=== PATIENT | male | born 1990 | race Caucasian/White ===

== ENCOUNTER 2025-01-19 12:10 | Emergency (ER) | payer SELFPAY ==
[~2025-01-19] VITALS: Ht 182.9 cm; Wt 110.0 kg
[2025-01-19 12:16] VITALS: O2SAT 100
[2025-01-19 14:13] VITALS: BP 122/70; PULSE 95; RESP 15; TEMP 36.7; O2SAT 100
== END 2025-01-19 14:13 | disposition home or self-care (01) ==
LOC: ER 12:10
DX: S09.90XA Unspecified injury of head, initial encounter (principal); E11.9 Type 2 diabetes mellitus without complications; F31.9 Bipolar disorder, unspecified; Y04.0XXA Assault by unarmed brawl or fight, initial encounter; Y93.01 Activity, walking, marching and hiking; Y92.89 Other specified places as the place of occurrence of the external cause; Y99.8 Other external cause status
CPT/HCPCS: 99283